=== PATIENT | female | born 1960 | race Caucasian/White ===

== ENCOUNTER 2018-04-07 20:35 | Observation (INO) | payer MEDICAID, OTHER ==
[2018-04-07] MEDS ORDERED: ASPIRIN 81 MG CHEWABLE TAB PO ONE (21:46)
[2018-04-07 22:00] LABS: PLATELET COUNT 279 10^3/uL (150-400)
--- NOTE | 2018-04-07 22:33 | EDPHY ---
H & P Stated Complaint: L arm to shoulder pain starting this AM, recent fall, - Personal History Current Tetanus Diphtheria and Acellular Pertussis (TDAP): No - Medical/Surgical History Hx Asthma: No Hx Chronic Respiratory Disease: No Hx Diabetes: No Hx Cardiac Disease: No Hx Renal Disease: No Hx Cirrhosis: No Hx Alcoholism: No Hx HIV/AIDS: No Hx Splenectomy or Spleen Trauma: No Other PMH: basal cell, L wrist plate placement 2014 - Social History Smoking Status: Never smoked Time Seen by Provider: 04/07/18 21:10 HPI/ROS: CHIEF COMPLAINT: Arm pain, shoulder pain, chest pain HISTORY OF PRESENT ILLNESS: This is a 57-year-old female with no significant past medical history who presents reporting that she developed pain in her left forearm this morning. In fact, the patient reports that she was dreaming and felt pain in her forearm. Patient had fallen onto the left arm 6 days ago, and it is the same arm that she has a plate in place for a radius fracture. After she woke, she reports that throughout the day the pain spread into her shoulder and now across her anterior chest. Pain in the arm is described a sharp pain and she feels like it is related to her plate. She developed the achy sensation in her shoulder about 2:00 p.m. this afternoon. This evening around 6:00 p.m. the patient reports that she developed chest tightness. She reports it feels like there is something blocking her esophagus when she tries to either take a deep breath or swallow. She does have a history of a hiatal hernia. She does not typically have GERD or reflux. No significant shortness of breath. No palpitations. No nausea or vomiting. No headache. Denies a history of radicular pain. No numbness or tingling in the arm. Patient does report she quit smoking about 6 years ago. No history of reactive airways disease, COPD, asthma. REVIEW OF SYSTEMS: A comprehensive 10 system review of systems was reviewed and is otherwise negative aside from elements mentioned in the history of present illness and medical decision making. PAST MEDICAL HISTORY: No history of high blood pressure, high cholesterol, diabetes. Questionable family history of coronary artery disease in mother. SOCIAL HISTORY: Former smoker. VITAL SIGNS Reviewed by me. GENERAL: Thin, well-developed, well-nourished, resting comfortably in no respiratory distress. HEENT: Atraumatic. Eyes: No icterus, no injection. Mouth: moist mucous membranes. No erythema or lesions. Neck: supple with no adenopathy. No tenderness palpation over the cervical spine. LUNGS: Diminished breath sounds bilaterally, faint wheeze at end expiration, no rhonchi or rales. No crepitus across the sternum. CARDIAC: Regular rate and rhythm, no rubs, murmurs or gallops. ABDOMEN: Soft, nontender, nondistended, bowel sounds normal. BACK: No CVA tenderness. EXTREMITIES: No trauma. No edema. Range of motion is normal throughout. NEURO: Alert and oriented, grossly nonfocal. SKIN: Warm and dry, no rash. PSYCHIATRIC: Normal mentation, no agitation. (Nicole Fischer) Constitutional: Initial Vital Signs Temperature (C) 36.7 C 04/07/18 20:39 Heart Rate 88 04/07/18 20:39 Respiratory Rate 18 04/07/18 20:39 Blood Pressure 132/66 H 04/07/18 20:39 O2 Sat (%) 96 04/07/18 20:39 O2 Delivery Mode Room Air Allergies/Adverse Reactions: azithromycin Allergy (Verified 04/07/18 20:39) moxifloxacin HCl [From Avelox] Allergy (Verified 04/07/18 20:39) promethazine [From Phenergan] Allergy (Verified 04/07/18 20:43) Home Medications: Medication Instructions Recorded Herbals/Supplements -Info Only 1 ea PO DAILY 04/08/18 Ibuprofen [Motrin (*)] 400 mg PO Q6 PRN 04/08/18 Multivitamins [Multivitamin (*)] 1 each PO DAILY 04/08/18 Medical Decision Making - Diagnostics Imaging: I viewed and interpreted images myself - Diagnostics EKG Interpretation: 12-LEAD EKG: Please see the full report in [facility]. My interpretation: Normal sinus rhythm, no ST or T-wave changes. (Nicole Fischer) Imaging Results: Xray: Chest x-ray was obtained. I viewed the images myself on the PACS system. My interpretation of the images is: Negative. The radiology interpretation is: Pending at this time. I discussed the results with the patient. (Nicole Fischer) ED Course/Re-evaluation: 57-year-old female with pain in her left forearm, radiating to left shoulder, and now across the anterior chest. The anterior chest pain is described as feeling better something stuck and that the air and the saliva cannot go away down. There is no pleuritic component. Pain is been present for several hours. Labs including a troponin were negative, D-dimer was negative, chest x-ray was normal. Chest x-ray was read by Radiology as demonstrating COPD. I discussed this finding with the patient. She now tells me that she has been working in a place that is quite smoky and she has been coughing frequently. She did stop smoking herself 6 years ago. Patient received a DuoNeb. Patient also received a GI cocktail to see if this relieves some of her chest discomfort Patient's heart score is 2. HEART SCORE: History: 0 EK Age: 2 Risk Factors: 1 Troponin: 0 Total 2 With respect to coronary artery disease, the patient is agreeable to stay for a 4 hr troponin. This will be drawn at 1:30 a.m.. Provided this is negative, the patient will be discharged to follow up with her primary care physician and with Cardiology. Please see the discharge instructions. (Nicole Fischer) EKG interpretation by me on record in [facility] system. Impression this is a repeat EKG time 1:46 a.m., sinus rhythm rate of 84 shows no signs of acute ischemia. 0238: I did go re-evaluate the patient she still complaining of worsening left arm and left shoulder shoulder pain. Some intermittent chest discomfort. She also reports that the pain in her left shoulder left arm got worse. Worse over the last 4 hr. However her 2nd troponin is negative. Her 2nd EKG performed time 1:46 a.m. Sinus rhythm at 84 he does have just very subtle ST depression V3 V4 V5 V6 is a little bit changed from her previous EKG. With ongoing left arm pain and left-sided scapula pain and a little bit of intermittent chest discomfort I did recommend we keep her in the hospital today for stress test and further cardiac evaluation and rule out. Patient's risk factors are smoking history, age. Patient is agreed for this as she still feels uncomfortable going home with the left arm pain and shoulder pain. This could be cervical radiculopathy as well. I will ask the hospitalist service to admit for further evaluation. Patient agrees for admission Hospitalist service consult Dr. Rodriguez agrees to admit. (Zachary Morocho) Differential Diagnosis: After history and physical examination, the differential for chest pain was considered, including but not limited to, myocardial ischemia, acute coronary syndrome, pulmonary embolus, chest wall pain, COPD, bronchospasm, gastrointestinal causes, pleural inflammation and pulmonary infectious causes. ( Nicole Fischer) - Data Points Laboratory Results: Laboratory Results 04/07/18 21:37 04/07/18 21:37 Medications Given: Discontinued Medications Al Hydroxide/Mg Hydroxide (Maalox Susp) 30 ml PO ONCE ONE Stop: 04/07/18 23:08 Last Admin: 04/07/18 23:12 Dose: 30 ml Albuterol Sulfate (Proventil Inh Prepack) 1 mdi TAKEHOME EDNOW ONE Stop: 04/08/18 00:00 Last Admin: 04/08/18 03:05 Dose: Not Given Albuterol/Ipratropium (Duoneb) 3 ml IH EDNOW ONE Stop: 04/07/18 23:28 Last Admin: 04/07/18 23:59 Dose: 3 ml Aspirin (Aspirin) 324 mg PO EDNOW ONE Stop: 04/07/18 21:47 Last Admin: 04/07/18 22:15 Dose: 324 mg Famotidine (Pepcid) 20 mg PO EDNOW ONE Stop: 04/07/18 23:08 Last Admin: 04/07/18 23:12 Dose: 20 mg Hyoscyamine Sulfate (Levsin, Hyomax-Sl) 0.25 mg PO ONCE ONE Stop: 04/07/18 23:08 Last Admin: 04/07/18 23:12 Dose: 0.25 mg Lidocaine (Lidocaine 2% Viscous) 15 ml PO ONCE ONE Stop: 04/07/18 23:08 Last Admin: 04/07/18 23:12 Dose: 15 ml Point of Care Test Results: Chemistry 04/08/18 04/07/18 01:46 21:43 POC Troponin I 0.01 ng/mL ng/mL 0.00 ng/mL ng/mL (0.00-0.08) (0.00-0.08) Departure - Departure Disposition: [facility] Inpatient Acute Clinical Impression: Bronchospasm Chest pain Qualifiers: Chest pain type: unspecified Qualified Code(s): R07.9 - Chest pain, unspecified Forearm pain Qualifiers: Laterality: left Qualified Code(s): M79.632 - Pain in left forearm Condition: Good
[2018-04-07] MEDS ORDERED: LIDOCAINE 2% VISCOUS 15 ML UDCUP PO ONE (23:07)
[2018-04-07] MEDS ORDERED: HYOSCYAMINE SULFATE 0.125 MG TAB PO ONE (23:07)
[2018-04-07] MEDS ORDERED: MAG HYDROX/AL HYDROX/SIMETH 30 ML UDCUP PO ONE (23:07)
[2018-04-07] MEDS ORDERED: FAMOTIDINE 20 MG TAB PO ONE (23:07)
[2018-04-07] MEDS ORDERED: IPRATROPIUM/ALBUTEROL 3 ML DEYVIAL IH ONE (23:27)
--- NOTE | 2018-04-08 01:15 | CPEKG ---
Test Reason : OPEN Blood Pressure : / mmHG Vent. Rate : 073 BPM Atrial Rate : 073 BPM P-R Int : 154 ms QRS Dur : 102 ms QT Int : 419 ms P-R-T Axes : 070 067 069 degrees QTc Int : 462 ms Sinus rhythm Confirmed by Nicole Fischer ([id number]) on 04/08/2018 1:14:39 AM Referred By: Confirmed By:Nicole Fischer
[2018-04-08] MEDS ORDERED: NITROGLYCERIN 0.4 MG BTL SL PRN (02:45)
[2018-04-08] MEDS ORDERED: ONDANSETRON 4 MG/2 ML VIAL IVP PRN (02:45)
[2018-04-08] MEDS ORDERED: ONDANSETRON DISINTEGRATING 4 MG TAB PO PRN (02:45)
[2018-04-08] MEDS: ALBUTEROL INH PREPACK MDI TAKEHOME ONE ×2 (03:04→03:05)
[2018-04-08] MEDS ORDERED: ACETAMINOPHEN 325 MG TAB PO PRN (03:07)
[2018-04-08] MEDS ORDERED: HYDROCODONE/APAP 5/325 TAB PO PRN (03:07)
[2018-04-08] MEDS ORDERED: CYCLOBENZAPRINE 10 MG TAB PO PRN (03:09)
--- NOTE | 2018-04-08 08:01 | CPEKG ---
Test Reason : OPEN Blood Pressure : / mmHG Vent. Rate : 084 BPM Atrial Rate : 086 BPM P-R Int : 151 ms QRS Dur : 111 ms QT Int : 393 ms P-R-T Axes : 088 064 080 degrees QTc Int : 465 ms Sinus rhythm Confirmed by Zachary Morocho ([id number]) on 04/08/2018 8:00:38 AM Referred By: Confirmed By:Zachary Morocho
--- NOTE | 2018-04-08 09:16 | GHP ---
DATE OF ADMISSION: 04/08/2018 SOURCE: Patient provides history, appears reliable. EMR was reviewed and case discussed with ED provider. CHIEF COMPLAINT: Left-sided chest pain, arm pain and shoulder pain. HISTORY OF PRESENT ILLNESS: This is a very pleasant 57-year-old female with past medical history significant for hiatal hernia, adrenal fatigue, remote history of tobacco dependence who presents to the emergency department today with complaints of left chest and shoulder pain that has been increasing. Patient reports that she sustained a mechanical fall approximately 6 days ago. She tumbled on her right ankle, landed on her left hand/wrist which underwent ORIF in 2014. The patient reports that she had increasing pain, sharp shooting pain along the lateral aspect of her wrist and arm on the thenar side. It is worse with movement. Patient subsequently developed some left shoulder pain and anterior chest pain, tightness. Patient reports that pain was achy and tight. She felt like she was having difficulty swallowing and food was getting stuck fdc down her esophagus. She denies any associated shortness of breath , no nausea, vomiting, diaphoresis. No fevers, chills. Patient with occasional dry cough. No rhinorrhea or sore throat. REVIEW OF SYSTEMS: Ten systems reviewed. Patient reports that she has developed a little bit of nausea since her heat was turned up in her room, but otherwise denies. ALLERGIES: Azithromycin, promethazine, moxifloxacin. HOME MEDICATIONS: None. PAST MEDICAL HISTORY: Significant for basal cell carcinoma, hiatal hernia without reflux, adrenal fatigue. PAST SURGICAL HISTORY: Left wrist ORIF, 2014. FAMILY HISTORY: Mother with history of CAD and stents, age latter 50s/early 60s. Younger brother with history of opiate dependence and overdose, . The next older brother, 14 month older, with history of cardiac disease, history of CVA, COPD, alcohol dependence. Patient reports that he was advised he needed a heart transplant, but was not able to quit drinking before passing away. SOCIAL HISTORY: Patient is employed. She quit tobacco use 6 years ago. She continues to smoke cannabis. She does not use any other illicit drugs. She drinks 3-4 times per week, a glass of wine with dinner. CODE STATUS: Full. PHYSICAL EXAMINATION: VITAL SIGNS: Upon arrival to the emergency department, blood pressure was 132/66, heart rate was 88, respiratory rate 18, O2 saturation 96% on room air, temperature 36.7. Current vitals available: Blood pressure 139/63, heart rate 78, respiratory rate 18, O2 saturation 97% on room air, temperature 36.1. GENERAL: No acute distress, pleasant, thin, frail- appearing female, is resting quietly in bed. She does appear fatigued. HEAD: Normocephalic, atraumatic. EYES: Extraocular muscles grossly intact. Pupils equal, round, react to light bilaterally and symmetric. No scleral icterus, conjunctival injection. ENT: Mucous membranes appear moist. No oropharyngeal erythema or exudates. Dentition intact. No nasal discharge. NECK: Supple. Trachea midline. CV: Regular rate and rhythm. No murmurs, rubs or gallops appreciated. RESPIRATORY: Slightly decreased air movement in the upper lung webb. No wheezes, rales or rhonchi. Otherwise, clear to auscultation bilaterally. ABDOMEN: Positive bowel sounds. Soft, nontender to palpation. No rebound, guarding or masses. : No suprapubic tenderness to palpation. No Lowe catheter in place. EXTREMITIES: No cyanosis, clubbing or edema appreciated. Patient without any pitting edema. She does have some swelling on the right lateral ankle with associated contusion that is dark green-blue in color. MUSCULOSKELETAL: Patient moves all extremities. Sits up independently. She has some decreased range of motion in the right ankle due to pain and swelling. Some decreased range of motion in the left wrist post plate. Patient has a positive Adam and significant tenderness to palpation over the pollicis tendons. NEURO: Grossly nonfocal. No facial drooping. Moves all extremities as noted above. PSYCH: Patient appears anxious. Patient is pleasant and cooperative. Thought process, content and questions are all appropriate. LABORATORY STUDIES: WBC 11.4, H and H are 11.7 and 34.3, MCV of 91.2, platelet count is 279. H and H stable, 11.9 and 35.6 this morning. D-dimer 0.42. Sodium is 136, potassium 3.9, chloride 106, CO2 is 27, anion gap 3, BUN 20, creatinine 0.7, GFR greater than 60, glucose 93, calcium is 9.1. Troponin is negative x3. Lipase 81. Chest x-ray: Image and report were reviewed by me, showing hyperexpanded lung webb consistent with COPD, biapical pleural fibrosis noted. No effusions, edema or consolidations noted. EKG: I reviewed myself, shows normal sinus rhythm in the 70s. QTc is 462. T- wave inversions, V1, V2. Repeat EKG this morning shows normal sinus rhythm in the 80s, QTc 465. The T-wave inversion in V2 has resolved. No ST depressions or elevations. ASSESSMENT/PLAN: 1. Pleasant 57-year-old female without significant history who presents to the emergency department with complaints of left hand, arm, shoulder, and increasing chest pain overnight. Patient reports that this morning, she woke up and her chest pain had finally resolved. She reports a positive family history in multiple first-degree relatives with cardiac disease, mother with history of stenting and brother , age 1 year older than herself, with heart disease, heart failure, but she is unsure regarding coronary artery disease. HEART score of 1. Discussed patient's negative findings, increased likelihood for her pain being related to a musculoskeletal issue with her recent fall. Option for followup with the primary care physician and outpatient stress testing versus inpatient stress testing. Given her multiple family history with cardiac disease, patient would prefer to complete a stress test for rule out. She believes she can complete a treadmill stress and she would like to proceed with this option first. Patient has been made nothing by mouth since midnight. 2. Chronic obstructive pulmonary disease. Patient does have a mild cough, but she denies any fevers, chills, rhinorrhea or sore throat. Chest x-ray is notable for some apical fibrosis as well as hyperexpanded lungs. Recommended that patient follow up with her primary care provider for additional monitoring as well as consideration for PFTs on an outpatient basis. Currently, patient without any wheezing or dyspnea, is not having any oxygen requirements. 3. Normocytic anemia. It is unclear if this is chronic in nature. Patient should follow up with her primary care doctor. She does not have any evidence of active bleeding at this time. 4. Fluid, electrolyte, nutrition: Patient was saline locked overnight. She had diet till midnight. She does not appear dehydrated. Electrolytes are adequate, do not require replacement. Diet advanced once stress test returns normal. 5. Prophylaxis: Sequential compression devices. Patient low risk for venous thromboembolism. Encourage ambulation as tolerated. 6. COR status: Full. DISPOSITION: Patient admitted to observation status. Anticipate that patient should be able to discharge once her stress test returns negative. Again, encouraged patient to follow up with her primary care provider regarding findings on her chest x-ray and her respiratory issues. /[id number]/MODL MTDD
[2018-04-08 12:11] VITALS: BP 133/63
--- NOTE | 2018-04-08 13:13 | PDDCSUM ---
Discharge Summary Discharge Summary: Date of Admission: 04/07/2018 Date of Discharge: 04/08/2018 Studies: 1. Exercise stress test - low risk of myocardial ischemia 2. CXR - hyperinflated lungs Discharge Diagnoses: 1. Non-cardiac chest pain 2. Normocytic anemia 3. Left wrist/forearm pain with history of metal plate 4. Possible early emphysema Brief Hospital Course: 57yo F with relatively minimal past medical history presented with a few days of worsening left arm, shoulder, and chest pain. She has a new job that is quite physical and developed some left wrist/forearm pain. This pain radiated up her arm to her shoulder and chest which prompted her to come to the ED. She had serial troponin and ECGs which were negative for ischemia. An exercise stress test was negative. A d-dimer was also negative. Overall, I believe her symptoms were MSK in etiology. It was noted that she was slightly anemic. This was not further investigated here. Medications: Please refer to EMR for complete list. No changes were made during this admission. Follow Up Plan: 1. PCP visit to work up anemia, manage wrist/arm pain 2. Consider PFTs with hyperexpanded lungs on CXR and h/o smoking Physical Exam: Vitals and telemetry reviewed. Alert and oriented, RRR without murmur, lungs clear, abdomen soft and nt, no leg edema.
--- NOTE | 2018-04-08 22:09 | CPR ---
DATE OF PROCEDURE: 04/08/2018 PROCEDURE: Exercise treadmill test. INDICATION: The patient is a 57-year-old female who presented to the hospital with left wrist pain, which radiated up into her shoulder and then into her chest. It woke her from her sleep. It persist ed for hours and was not associated with nausea or diaphoresis. She denies any history of hypertensi on, hyperlipidemia, diabetes, family history of coronary artery disease, or ongoing tobacco use. PROCEDURE IN DETAIL: Consent was obtained and the patient was placed on continuous telemetry. Her r esting EKG revealed normal sinus rhythm with a heart rate of [address]-T wave changes. T he patient walked on the treadmill for 7 minutes without any associated symptoms. She reached a hear t rate of 162 beats per minute, which was 98% of her age-predicted maximum heart rate. She remained in normal sinus rhythm and developed nonspecific upsloping ST depression with exercise. The maximal ST depression was 0.5 mm. Her blood pressure at rest was 132/78 and increased appropriately, peaking at 168/80. Her blood pressure and heart rate returned to baseline within 4 minutes of recovery. PLAN: Low risk exercise treadmill test. /[id number]/MODL
== END 2018-04-08 14:16 | disposition home or self-care (01) ==
LOC: F2W 04-08 03:41
PROVIDERS: ADMIT Family Medicine; ATTEND Internal Medicine
DX: R07.89 Other chest pain (principal); D64.9 Anemia, unspecified; M25.532 Pain in left wrist; M79.632 Pain in left forearm
CPT/HCPCS: 71046; 93005; 93017; G0378; 84484-PO